=== PATIENT | female | born 1945 | race Caucasian/White ===

== ENCOUNTER 2020-11-28 16:37 | Outpatient (REF) | payer MEDICARE, SELFPAY | END 2020-11-28 16:38 | disposition home or self-care (01) | LOC: HO.LNP 16:37 | PROVIDERS: Visit Provider Hospitalist | DX: R30.0 Dysuria (principal) | CPT/HCPCS: 87086 ==

== ENCOUNTER 2021-04-16 12:10 | Outpatient (REF) | payer MEDICARE, SELFPAY ==
--- NOTE | ~2021-04-16 | MM_ITS ---
EXAMINATION: MM SCREENING DIGITAL BREAST TOMOSYNTHESIS, BILATERAL CLINICAL INFORMATION: Screening. Asymptomatic. The lifetime risk of breast cancer based on the Tyrer-Cuzick Model is 1.4%. COMPARISON: Mammography: July 17, 2019 and studies dating back to March 15, 2012 TECHNIQUE: Digital breast tomosynthesis is performed in both the craniocaudal and mediolateral oblique views along with computer-aided detection (CAD). Synthesized 2D images are generated from the tomosynthesis. FINDINGS: There are scattered areas of fibroglandular density (ACR BI-RADS breast composition Category b). There are no significant masses, abnormal calcifications, or other abnormalities. MM/MM tomosynthesis screening BI IMPRESSION: There are no significant changes from prior study. ASSESSMENT: BI-RADS 1: Negative RECOMMENDATION: Routine annual mammography screening. This patient's information was entered into a reminder system with a target due date for their next mammogram.
== END 2021-04-16 12:11 | disposition home or self-care (01) ==
LOC: HO.MAMMO 12:10
PROVIDERS: PCP General Practice; Visit Provider General Practice
DX: Z12.31 Encounter for screening mammogram for malignant neoplasm of breast (principal)
CPT/HCPCS: 77063; 77067

== ENCOUNTER 2021-07-17 12:18 | Outpatient (REF) | payer MEDICARE, SELFPAY ==
--- NOTE | 2021-07-17 | PFT_ITS ---
FLOWS: FEV1 82% of predicted at 1.53 L. FVC 70% of predicted at 1.71 L. FEV1 to FVC ratio of 0.89. No bronchodilator testing was performed. LUNG VOLUMES: Total lung capacity 85% predicted at 4 L. Residual volume 72% of predicted at 1.63 L. Slow vital capacity 94% of predicted at 2.37 L. Expiratory reserve volume 97% of predicted at 0.47 L. Diffusion capacity is mildly decreased, diffusion capacity corrects to normal after adjustment for alveolar ventilation. IMPRESSION: No obstructive or restrictive ventilatory defect. No bronchodilator testing was performed. Essentially, normal pulmonary function test. MD TOMASA Rushing/MODL / [id number]
== END 2021-07-17 12:19 | disposition home or self-care (01) ==
LOC: HO.RESP 12:18
PROVIDERS: PCP General Practice; Visit Provider General Practice
DX: R07.82 Intercostal pain (principal)
CPT/HCPCS: 94010; 94727; 94729